=== PATIENT | male | born 1985 | race Caucasian/White ===

== ENCOUNTER 2022-03-25 11:20 | Emergency (ER) | payer OTHER ==
[2022-03-25] MEDS ORDERED: ANUSOL HC SUPP1 SUPP PR (13:58)
[2022-03-25] MEDS ORDERED: PERCOCET 5/325 T1 EA PO ×2 (14:43→14:44)
== END 2022-03-25 14:47 | disposition home or self-care (01) ==
LOC: ER1 11:20
DX: K64.8 Other hemorrhoids (principal); K64.5 Perianal venous thrombosis
CPT/HCPCS: 99283